=== PATIENT | male | born 1950 | race Caucasian/White ===

== ENCOUNTER → 2019-02-18 | Outpatient (CLI) | payer MEDICARE, OTHER ==
--- NOTE | 2019-02-20 01:49 | MR ---
EXAMINATION TYPE: MR MRCP DATE OF EXAM: 02/18/2019 COMPARISON: HISTORY: Disease of Pancreas Standard multiplanar, multisequence MRI departmental protocol Multiplanar, multisequence images of the abdomen were acquired. FINDINGS: Gallbladder has normal size and contour. There is no sign of gallbladder wall thickening. T here is 2 cm cyst in the left lobe of the liver. Stomach appears intact. The bile ducts are not dilat ed. Spleen shows no focal defect. There is no evidence of a pancreatic mass. There is ectasia of the distal pancreatic duct. Distal pancreatic duct measures up to 7 mm. I see no discrete pancreatic mass . There is no hydronephrosis. Kidneys have normal size and contour. There is no sign of ascites. Ther e is no pleural effusion. There is no evidence of retroperitoneal adenopathy. There is no adrenal mas s. Distal common bile duct appears normal. I see no filling defects. IMPRESSION: Biliary tree appears normal. There is mild dilation of the mid and distal pancreatic duct with a bead ed appearance that could relate to old inflammatory disease. No discrete pancreatic mass. Small cyst in the left lobe of the liver.
== END | disposition home or self-care (01) ==
LOC: RADMRIMAIN 13:47
PROVIDERS: ATTEND Physician Assistant
DX: K85.90 Acute pancreatitis without necrosis or infection, unspecified (principal); K76.89 Other specified diseases of liver
CPT/HCPCS: 74181

== ENCOUNTER 2019-03-21 19:20 | Inpatient (IN) | payer MEDICARE, OTHER ==
[2019-03-21] MEDS ORDERED: HYDROmorphone 1 MG/ML 1 ML SYRINGE IVP STA (21:19)
[2019-03-21] MEDS ORDERED: ONDANSETRON 4 MG/2 ML VIAL IVP PRN (21:25)
[2019-03-21] MEDS ORDERED: NALOXONE 0.4 MG/ML 1 ML VIAL IV PRN (21:25)
--- NOTE | 2019-03-21 21:25 | ED ---
Abdominal Pain HPI - General Source: patient, RN/MD, EMS Mode of arrival: ambulatory Limitations: no limitations <Kristina Wood - Last Filed: 03/21/19 21:16> <Minh Sommer - Last Filed: 03/21/19 21:27> - General Chief Complaint: Abdominal Pain Stated Complaint: Acute Pancreatitis Time Seen by Provider: 03/21/19 19:56 - History of Present Illness Initial Comments: 68-year-old male patient is presenting to the emergency department as a transfer from [facility] for pancreatitis and leukocytosis. Patient states that he has been having abdominal pain intermittently for the last 3 months. Patient states that he has been evaluated multiple times with no results. States that the pain seemed to worsen today. States he is unable to eat or drink. States that the pain is in his upper abdomen radiating through to his back. He states he hasn't had a bowel movement in 10 days. Denies any difficulty with urination. Denies fever or chills. Denies any vomiting but states he has been nauseous. Patient denies any recent rash, shortness breath, chest pain, back pain, numbness, tingling, dizziness, weakness, hematuria, dysuria, urinary urgency, urinary frequency, headache, visual changes, or any other complaints. (Kristina Wood) - Related Data Allergies Allergy/AdvReac Type Severity Reaction Status Date / Time No Known Allergies Allergy Verified 03/21/19 19:36 Review of Systems ROS Other: All systems not noted in ROS Statement are negative. <Kristina Wood - Last Filed: 03/21/19 21:16> ROS Other: All systems not noted in ROS Statement are negative. <Minh Sommer - Last Filed: 03/21/19 21:27> ROS Statement: Those systems with pertinent positive or pertinent negative responses have been documented in the HPI. Past Medical History Past Medical History: No Reported History History of Any Multi-Drug Resistant Organisms: None Reported Past Surgical History: Hernia Repair Additional Past Surgical History / Comment(s): intestinal blockaege Past Psychological History: No Psychological Hx Reported Smoking Status: Current every day smoker Past Alcohol Use History: Daily Past Drug Use History: None Reported <Kristina Wood - Last Filed: 03/21/19 21:16> General Exam Limitations: no limitations General appearance: alert, in no apparent distress, other (Physical well- developed, well-nourished elderly male patient in no acute distress. Vital signs upon presentation are temperature 99.2F, pulse 93, respirations 16, blood pressure 112/90, pulse ox 96% on room air.) Eye exam: Present: normal appearance, PERRL, EOMI. Absent: scleral icterus, con junctival injection, periorbital swelling ENT exam: Present: normal exam, normal oropharynx, mucous membranes moist Respiratory exam: Present: normal lung sounds bilaterally. Absent: respiratory distress, wheezes, rales, rhonchi, stridor Cardiovascular Exam: Present: regular rate, normal rhythm, normal heart sounds. Absent: systolic murmur, diastolic murmur, rubs, gallop, clicks GI/Abdominal exam: Present: soft, tenderness (Midepigastric tenderness), normal bowel sounds. Absent: distended, guarding, rebound, rigid Neurological exam: Present: alert, oriented X3, CN II-XII intact Psychiatric exam: Present: normal affect, normal mood Skin exam: Present: warm, dry, intact, normal color. Absent: rash <Kristina Wood - Last Filed: 03/21/19 21:16> Course Vital Signs 03/21/19 19:36 Temperature 99.2 F Pulse Rate 93 Respiratory 16 Rate Blood Pressure 112/90 O2 Sat by Pulse 96 Oximetry Medical Decision Making - Radiology Data Radiology results: report reviewed <Kristina Wood - Last Filed: 03/21/19 21:16> <Minh Sommer - Last Filed: 03/21/19 21:27> - Medical Decision Making 48-year-old male patient presents to the emergency department today for evaluation of acute pancreatitis and leukocytosis. He is a transfer from [facility]. Physical examination does reveal midepigastric tenderness with some guarding. I did review her reports from previous hospital, labs show white blood cell count of 20.2, sodium 132, potassium 3.4, blood glucose is 151, bilirubin 2.2. Lipase 4641. CT abdomen and pelvis was reviewed and did show evidence for inflammatory changes around the stomach and duodenum, there is also concern for possible bowel lymphoma. There is some fluid around the duodenal sweep. Patient did receive a dose of Zosyn from the previous hospital. Case was discussed with Dr. Duvall from some physicians who agrees to admission. (Kristina Wood) I saw this patient in conjunction with the physician senior assistant manager. I performed independent history and physical exam. Agree with case management. (Minh Sommer) - Radiology Data CT abdomen and pelvis was obtained with IV contrast. Report was reviewed in its entirety. Impression by Dr. Gooden and shows thickening of the mucosa of the stomach and duodenal sweep. Differential diagnoses include inflammatory changes, gastritis, duodenitis, bowel lymphoma would have to be considered in the differential diagnosis. Punctate calcific density at the pancreatitis 1 axillary #28 raises the possibility of secondary chronic pancreatitis. There is fluid surrounding the duodenal sweep. No free intraperitoneal air. No definite bowel obstruction. Hypodense lesion within the left lobe of the liver consistent most likely with a hepatic cyst as described above. (Kristina Wood) Disposition Decision to Admit Reason: Admit from EC Decision Date: 03/21/19 Decision Time: 21:25 <Kristina Wood - Last Filed: 03/21/19 21:16> <Minh Sommer - Last Filed: 03/21/19 21:27> Clinical Impression: Acute pancreatitis, Leukocytosis Disposition: ADMITTED IP TO THIS [facility] Condition: Serious Referrals: None,Stated [Primary Care Provider] - 1-2 days
--- NOTE | 2019-03-21 23:56 | P.HPIM ---
History of Present Illness H&P Date: 03/21/19 Chief Complaint: Abdominal pain The patient is a 68-year-old male with no significant past medical history who presents to the ER after being transferred here from an outside hospital from [facility] in [facility]. Apparently the patient presented there earlier today with chief complaint of generalized abdominal pain. The patient reports ongoing diffuse complaints of bloating with intermittent episodes of sharp abdominal pain rated as severe without any radiation, the patient reports associated nausea and vomiting with decreased appetite. The patient reports severe constipation and reports that he has not had a bowel movement in the last 9-10 days. The patient reports that his hand workup at [facility] including ultrasound of abdomen and abdominal CT previously and was scheduled to have a consultation appointment with GI on this but he presented there today with significant discomfort. The patient also reports some pyrosis and bloating symptoms. The patient reports he is tempted some enemas per is relieved his constipation without any success. Workup from [place] showed a leukocytosis of 20.1 , serum sodium 132 , potassium 3.4 , alkaline phosphatase 142 total bilirubin 2.2 , lipase 4641. Review of records indicates the patient had a CT abdomen and pelvis done at [facility] that showed mucosal thickening of the stomach and duodenum and a punctate calcific density of the pancreatic head possible sequela of chronic pancreatitis, there is no small bowel obstruction or intraperitoneal air, noted hypodense lesion in the left lobe of the liver consistent with a hepatic cyst. EKG showed sinus mechanism without any ischemia. The patient was given Zosyn IV fluids and transferred here for GI consultation Review of Systems pertinent positives per HPI all other review of systems are otherwise negative Past Medical History Past Medical History: No Reported History History of Any Multi-Drug Resistant Organisms: None Reported Past Surgical History: Hernia Repair Additional Past Surgical History / Comment(s): intestinal blockaege Past Psychological History: No Psychological Hx Reported Smoking Status: Current every day smoker Past Alcohol Use History: Daily Past Drug Use History: None Reported Medications and Allergies Home Medications Medication Instructions Recorded Confirmed Type No Known Home Medications 03/21/19 03/21/19 History Allergies Allergy/AdvReac Type Severity Reaction Status Date / Time No Known Allergies Allergy Verified 03/21/19 21:43 Physical Exam Vitals: Vital Signs Temp Pulse Resp BP Pulse Ox 03/21/19 21:30 84 18 136/82 94 L 03/21/19 21:00 88 16 118/83 94 L 03/21/19 20:30 85 18 145/90 95 03/21/19 20:00 82 16 112/90 94 L 03/21/19 19:36 99.2 F 93 16 112/90 96 03/21/19 19:35 87 18 112/90 97 Intake and Output 03/21/19 03/21/19 03/22/19 14:59 22:59 06:59 Other: Weight 69.853 kg Constitutional: No acute distress, conversant, pleasant Eyes: Anicteric sclerae, moist conjunctiva, no lid-lag, PERRLA ENMT: NC/AT,Oropharynx clear, no erythema, exudates Neck:Supple, FROM, no masses, or JVD, No carotid bruits; No thyromegaly Lungs: Clear to auscultation, Clear to percussion, Normal respiratory effort, no accessory muscle use Cardiovascular: Heart regular in rate and rhythm, No murmurs, gallops, or rubs no peripheral edema Abdominal: Diffusely tender with voluntary guarding, negative Black's, hypoactive bowel sounds No hepatomegaly, No splenomegaly, No palpable mass No abdominal wall hernia noted Skin: Normal temperature, tone, texture, turgor, No induration No subcutaneous nodules, No rash, lesions, No ulcers Extremities:No digital cyanosis No clubbing, Pedal pulses intact and symmetrical Radial pulses intact and symmetrical Normal gait and station, No calf tenderness Psychiatric: Alert and oriented to person, place and time, Appropriate affect Intact judgement Neuro: Muscles Strength 5/5 in all 4 extremities, Sensation to light touch grossly present throughout, Cranial nerves II-XII grossly intact. No focal sensory deficits Assessment and Plan Assessment: Acute pancreatitis Leukocytosis GERD Hyponatremia Hypokalemia hyperbilirubinemia Constipation Smoker Plan: Patient is admitted anticipated greater than 2 midnight stay with acute pancreatitis idiopathic after presenting with abdominal pain and found to have elevated lipase in the 4600 range, patient has continued on standard protocol being made nothing by mouth, continue IV fluids with normal saline and IV anti- emetics with Zofran and continue the patient on analgesic therapy with Dilaudid, will check blood cultures and urinalysis as a patient has a profound leukocytosis, we'll hold off on any antibiotics at this time unless the patient becomes febrile. We'll replace his potassium with IV potassium. Review of records indicates the patient had MRCP 02/18/19 which showed a normal-appearing biliary tree with mild dilatation of the mid and distal pancreatic duct with a beaded appearance that could relate to old inflammatory disease, no discrete pancreatic mass. The plan will be to consult GI for further recommendations and continue to follow his clinical course CODE STATUS: Full code Anticipated discharge: 2-[address]: Home Discussed plan of care with: Patient Prophylaxis: PPI therapy SCDs and heparin
[2019-03-22] MEDS: HYDROmorphone 1 MG/ML 1 ML SYRINGE IVP PRN ×7 (00:59→23:14)
[2019-03-22] MEDS: SODIUM CHLORIDE 0.9% 1,000 ML IV SCH ×2 (01:00→09:09)
[2019-03-22] MEDS: POTASSIUM CHLORIDE 10 MEQ in WATER FOR INJECTION 1 100ML.BAG IVPB SCH ×4 (01:06→09:08)
[2019-03-22 01:08] LABS: Appearance,Urine Clear (Clear); Bacteria,Urine Rare /hpf; Bilirubin,Urine Negative (Negative); Blood,Urine Negative (Negative); Color,Urine Yellow; Glucose,Urine (UA) Negative (Negative); Ketones,Urine 1+ (Negative); Leukocyte Esterase,Urine Negative (Negative); Mucus,Urine Rare /hpf; Nitrite,Urine Negative (Negative); Protein,Urine 1+ (Negative); RBC,Urine 2 /hpf (0-5); Squamous Epithelial Cell,Urine <1 /hpf (0-4); WBC,Urine 6 /hpf (0-5)
[2019-03-22 01:20] LABS: Specific Gravity,Urine >1.050 (1.001-1.035)
--- NOTE | 2019-03-22 03:41 | XR ---
EXAMINATION TYPE: XR chest 2V DATE OF EXAM: 03/22/2019 COMPARISON: NONE HISTORY: Leukocytosis TECHNIQUE: FINDINGS: Heart is normal. Lungs are clear of infiltrate. There is no heart failure. Thoracic aorta i s atheromatous. There are no hilar masses. Bony thorax is intact. IMPRESSION: No active cardiopulmonary disease.
[2019-03-22] MEDS: HEPARIN SODIUM,PORCINE 5,000 UNIT/ML 1 ML VIAL SQ SCH ×2 (08:24→21:14)
[2019-03-22] MEDS: PANTOPRAZOLE 40 MG/10 ML VIAL IVP SCH ×2 (08:24→21:14)
[2019-03-22 09:13] LABS: Basophils # (A) 0.1 k/uL (0-0.2); Basophils % (A) 1 %; Eosinophils # (A) 0.2 k/uL (0-0.7); Eosinophils % (A) 1 %; HCT 40.7 % (39.0-53.0); HGB 13.9 gm/dL (13.0-17.5); Lymphocytes # (A) 0.9 k/uL (1.0-4.8); Lymphocytes % (A) 6 %; MCH 31.9 pg (25.0-35.0); MCHC 34.1 g/dL (31.0-37.0); MCV 93.5 fL (80.0-100.0); Mean Platelet Volume 8.5; Monocytes % (A) 6 %; Neutrophils # (A) 14.7 k/uL (1.3-7.7); Neutrophils % (A) 86 %; Platelet Count 284 k/uL (150-450); RBC 4.36 m/uL (4.30-5.90); RDW 12.4 % (11.5-15.5)
[2019-03-22 09:55] LABS: ALT 20 U/L (4-49); AST 22 U/L (17-59); African American GFR (CKD) >90 (>60 ml/min/1.73 sqM); Albumin 3.2 g/dL (3.5-5.0); Alkaline Phosphatase 112 U/L (38-126); Anion Gap 9 mmol/L; Blood Urea Nitrogen 15 mg/dL (9-20); Calcium 8.5 mg/dL (8.4-10.2); Carbon Dioxide 27 mmol/L (22-30); Chloride 97 mmol/L (98-107); Cholesterol 91 mg/dL (<200); Glucose 87 mg/dL (74-99); HDL Cholesterol 26 mg/dL (40-60); LDL Cholesterol,Calculated 53 mg/dL (0-99); Non-African American GFR(CKD) >90 (>60 ml/min/1.73 sqM); Potassium 4.4 mmol/L (3.5-5.1); Sodium 133 mmol/L (137-145); Total Bilirubin 2.2 mg/dL (0.2-1.3); Total Protein 5.8 g/dL (6.3-8.2); Triglycerides 61 mg/dL (<150)
[2019-03-22 10:03] LABS: Glucose,Whole Blood 93 mg/dL (75-99)
[2019-03-22] MEDS ORDERED: NICOTINE POLACRILEX 2 MG GUM BUCCAL PRN (12:39)
--- NOTE | 2019-03-22 12:40 | P.PN ---
Subjective Progress Note Date: 03/22/19 Principal diagnosis: abdominal pain Patient is a 68-year-old male with no significant past medical history, no PCP, and ongoing tobacco abuse who presented to the emergency department from [facility] secondary to abdominal pain and abnormal CT. He had presented there with ongoing abdominal pain over the last 10-12 days. Initial laboratory analysis showed an elevated lipase of 4000. CT abdomen and pelvis showed mucosal thickening of the stomach and watermelon with punctate calcification of the pancreatic head but no signs of acute pancreatitis. There is a hypodense lesion noted in the left lobe of the liver consistent with hepatic cysts. He was also noted to have an elevated white blood cell count at 20. He was transferred here for definitive management. He had been seeing a physician in [place] as an outpatient and he had undergone an outpatient CT, abdominal ultrasound, and MRCP which showed mild dilation of the mid and distal pancreatic duct with repeated. Since that could relate to old inflammatory disease and a small cyst in the left lobe of the liver. He presented to the ER yesterday as his pain was getting worse and he could no longer tolerate it. He reports that for the last 10-12 days he's had severe abdominal pain with eating and had not had a bowel movement. He has attempted several enemas and suppositories without success. He has not been eating for the last week secondary to the pain and no bowel movement. He reports that he had a colonoscopy approximately 5-6 years ago that was good and he was told to follow- up in 10 years. He had an appointment with GI on 03/22/19 in [place] but his peak pain became so severe that he presented to the emergency department. Patient seen and examined at bedside. He continues to have some abdominal pain which he states is unchanged from yesterday, he reports feeling hungry but not wanting to eat secondary to his belly pain. He still has not had a bowel movement. He denies any weight loss until he stopped eating on purpose approximately 10 days ago. He denies any night sweats. He is father did have some type of cancer but is unsure what kind but no other known history of colon or stomach cancer in the family. Objective - Vital Signs Vital signs: Vital Signs Temp 97.6 F 03/22/19 07:00 Pulse 89 03/22/19 07:00 Resp 20 03/22/19 07:00 BP 127/76 03/22/19 07:00 Pulse Ox 100 03/22/19 07:00 Intake & Output 03/21/19 03/22/19 03/22/19 18:59 06:59 18:59 Weight 69.853 kg 69.853 kg - Exam General: ill appearing, no distress, appears at stated age, temporal wasting gaunt Derm: warm, dry Head: atraumatic, normocephalic, symmetric Eyes: EOMI, no lid lag, anicteric sclera Mouth: no lip lesion, mucus membranes dry Cardiovascular: S1S2 reg, no murmur, positive posterior tibial pulse bilateral, Lungs: CTA bilateral, no rhonchi, no rales , no accessory muscle use Abdominal: soft, +tender to palpation RUQ and LLQ, no guarding, no appreciable organomegaly Ext: no gross muscle atrophy, no edema, no contractures Neuro: CN II-XI grossly intact, no focal neuro deficits Psych: Alert, oriented, appropriate affect - Labs CBC & Chem 7: 03/22/19 08:35 03/22/19 08:35 Labs: Abnormal Lab Results - Last 24 Hours (Table) 03/22/19 03/22/19 03/22/19 Range/Units 00:35 08:35 08:35 WBC 17.0 H (3.8-10.6) k/uL Neutrophils # 14.7 H (1.3-7.7) k/uL Lymphocytes # 0.9 L (1.0-4.8) k/uL Sodium 133 L (137-145) mmol/L Chloride 97 L (98-107) mmol/L Total Bilirubin 2.2 H (0.2-1.3) mg/dL Total Protein 5.8 L (6.3-8.2) g/dL Albumin 3.2 L (3.5-5.0) g/dL HDL Cholesterol 26 L (40-60) mg/dL Ur Specific [place] >1.050 H (1.001-1.035) Urine Protein 1+ H (Negative) Urine Ketones 1+ H (Negative) Urine WBC 6 H (0-5) /hpf Urine Bacteria Rare H (None) /hpf Urine Mucus Rare H (None) /hpf Assessment and Plan Assessment: Pancreatitis possible acute on chronic and dilated pancreatic duct -Await GI consultation -Nothing by mouth -IV fluids, pain medications, antiemetics Severe constipation with no bowel movement in greater than 10 days and thickening of the duodenum and stomach on computed tomography scan -Consult GI -Nothing by mouth -No signs of obstruction on computed tomography scan is okay with GI will order MiraLAX Leukocytosis likely secondary to pain and pancreatitis -Follow CBC -UA and chest x-ray negative and no indication for antibiotics currently Hyponatremia -Likely secondary to poor solute intake -Continue IV fluids -Repeat sodium in a.m. Tobacco abuse -Cessation -Nicotine replacement DVT prophylaxis: Heparin Discussed with: patient, nursing Anticipated discharge: 2-[address]: home A total of 35 minutes was spent on the care of this complex patient more than 50% of the time was spent in counseling and care coordination. -
[2019-03-22] MEDS: LACTATED RINGERS 1,000 ML IV SCH ×2 (16:47→21:09)
[2019-03-22 16:54] LABS: Glucose,Whole Blood 83 mg/dL (75-99)
[2019-03-22 20:30] LABS: Glucose,Whole Blood 77 mg/dL (75-99)
[2019-03-22] MEDS: DEXTROSE 5%-0.9% NACL 1,000 ML IV SCH (21:11)
[2019-03-23] MEDS: HYDROmorphone 1 MG/ML 1 ML SYRINGE IVP PRN ×5 (02:08→15:16)
[2019-03-23] MEDS: DEXTROSE 5%-0.9% NACL 1,000 ML IV SCH ×2 (06:17→08:56)
[2019-03-23 07:08] LABS: Glucose,Whole Blood 119 mg/dL (75-99)
--- NOTE | 2019-03-23 07:26 | CONS ---
CONSULTATION DATE OF SERVICE: 03/22/2019 REASON FOR CONSULTATION: Acute pancreatitis. HISTORY OF PRESENT ILLNESS: The patient is a 68-year-old pleasant white male with no significant past medical history was transferred from [facility] when he was admitted because of chronic abdominal pain for the last 2 weeks duration. He describes the pain mostly in the epigastric area diffusely radiating to the periumbilical and lower abdominal area associated with abdominal bloating, nausea, and decreased appetite for the last 2 weeks. He lost approximately 15 pounds since the onset of these symptoms. He denies any alcohol use. He went to the emergency room at [facility], was noted to have elevated lipase consistent with acute pancreatitis. Initial labs at [facility] showed a lipase of 4641, alkaline phosphatase of 142, bilirubin was 1.2. He did have a CT of the abdomen and pelvis done at [facility] that showed mucosal thickening of the stomach and duodenum and punctate calcific density in the pancreatic head suspicious for chronic pancreatitis. The patient denies any alcohol use. He never had these symptoms in the past. No prior history of acute pancreatitis. No family history of pancreatitis. PAST MEDICAL HISTORY: Unremarkable. PAST SURGICAL HISTORY: Hernia repair. MEDICATIONS AT HOME: None. ALLERGIES: No known drug allergies. SOCIAL HISTORY: Chronic smoker, but no alcohol use. FAMILY HISTORY: Unremarkable. REVIEW OF SYSTEMS: CARDIOPULMONARY: No chest pain or shortness of breath. GENITOURINARY: No dysuria or hematuria. MUSCULOSKELETAL: Unremarkable. SKIN: Unremarkable. ENDOCRINE: Unremarkable. PSYCHIATRIC: Unremarkable. NEUROLOGY: Unremarkable. ENT/VISION: Unremarkable. CONSTITUTIONAL: No recent weight loss. No fever, chills, night sweats. PHYSICAL EXAMINATION: On physical examination he appears comfortable. No apparent distress. VITAL SIGNS: Are stable. Blood pressure 142/63, pulse rate 109, temperature 98.9. HEENT EXAMINATION: Unremarkable. Conjunctivae pink. Sclerae anicteric. Oral cavity no lesions. NECK: No JVD or lymph node enlargement. CHEST: Was clear to auscultation. HEART: Regular rate and rhythm. ABDOMEN: Soft. Bowel sounds are positive. There was moderate to severe tenderness in the epigastric and in the periumbilical area. EXTREMITIES: No pedal edema. SKIN: No rashes. NEURO: He is alert and oriented x3. No focal deficits. LABS: Labs from today: WBC 17, hemoglobin 13.9, platelets normal. BUN and creatinine normal. Basic metabolic panel is within normal limits. Lipase is 5662. ALT and AST are 22 and 28 respectively. T-bilirubin is 2.2, alkaline phosphatase is 112. The CT of the abdomen as mentioned above at [facility] showed punctate calcification at the head of the pancreas suspicious for chronic pancreatitis. IMPRESSION: This is a patient who presents to the hospital with severe epigastric pains radiating to the periumbilical area for the last 2 weeks duration noted to have elevated lipase consistent with acute pancreatitis. The CAT scan of the abdomen did show some punctate calcifications in the head of the pancreas suspicious for chronic pancreatitis. The patient states he denies any alcohol abuse. Etiology of pancreatitis remains unclear. RECOMMENDATIONS: 1. Keep him n.p.o. except ice chips. 2. Aggressive IV hydration. 3. Pain medications as needed. 4. IV proton pump inhibitor. 5. Repeat labs in the morning. 6. I had a lengthy discussion with the patient regarding workup of chronic pancreatitis. At this time we will obtain fasting serum triglyceride levels as well as IgG 4 levels and he may need to be investigated further on outpatient basis with endoscopic ultrasound of pancreas on outpatient basis. At this time, we will follow him closely. Thank you for this consultation. MMODL / IJN: [id number] /
[2019-03-23] MEDS: HEPARIN SODIUM,PORCINE 5,000 UNIT/ML 1 ML VIAL SQ SCH ×2 (08:56→21:12)
[2019-03-23] MEDS: PANTOPRAZOLE 40 MG/10 ML VIAL IVP SCH ×2 (08:56→21:12)
[2019-03-23 09:34] LABS: ALT 15 U/L (4-49); AST 18 U/L (17-59); African American GFR (CKD) >90 (>60 ml/min/1.73 sqM); Albumin 2.7 g/dL (3.5-5.0); Alkaline Phosphatase 86 U/L (38-126); Anion Gap 6 mmol/L; Blood Urea Nitrogen 10 mg/dL (9-20); Carbon Dioxide 26 mmol/L (22-30); Chloride 102 mmol/L (98-107); Glucose 106 mg/dL (74-99); Non-African American GFR(CKD) >90 (>60 ml/min/1.73 sqM); Potassium 3.5 mmol/L (3.5-5.1); Sodium 134 mmol/L (137-145); Total Bilirubin 1.3 mg/dL (0.2-1.3); Total Protein 5.1 g/dL (6.3-8.2)
[2019-03-23 11:42] LABS: Glucose,Whole Blood 102 mg/dL (75-99)
[2019-03-23] MEDS: LACTATED RINGERS 1,000 ML IV SCH ×2 (12:05→17:31)
[2019-03-23 16:01] VITALS: BMI 22.4
--- NOTE | 2019-03-23 16:50 | P.PN ---
Subjective Progress Note Date: 03/23/19 Principal diagnosis: abdominal pain Patient is a 68-year-old male with no significant past medical history, no PCP, and ongoing tobacco abuse who presented to the emergency department from [facility] secondary to abdominal pain and abnormal CT. He had presented there with ongoing abdominal pain over the last 10-12 days. Initial laboratory analysis showed an elevated lipase of 4000. CT abdomen and pelvis showed mucosal thickening of the stomach and watermelon with punctate calcification of the pancreatic head but no signs of acute pancreatitis. There is a hypodense lesion noted in the left lobe of the liver consistent with hepatic cysts. He was also noted to have an elevated white blood cell count at 20. He was transferred here for definitive management. He had been seeing a physician in [place] as an outpatient and he had undergone an outpatient CT, abdominal ultrasound, and MRCP which showed mild dilation of the mid and distal pancreatic duct with repeated. Since that could relate to old inflammatory disease and a small cyst in the left lobe of the liver. He presented to the ER yesterday as his pain was getting worse and he could no longer tolerate it. He reports that for the last 10-12 days he's had severe abdominal pain with eating and had not had a bowel movement. He has attempted several enemas and suppositories without success. He has not been eating for the last week secondary to the pain and no bowel movement. He reports that he had a colonoscopy approximately 5-6 years ago that was good and he was told to follow- up in 10 years. He had an appointment with GI on 03/22/19 in [place] but his peak pain became so severe that he presented to the emergency department. He was seen the GI who felt that he likely has sequela of chronic pancreatitis and has been acute flare they recommended nothing by mouth status, IV fluids, and pain medications. Patient seen and examined at bedside. He reports that his abdominal pain is slightly improved from yesterday, no nausea, feeling hungry, passing gas of no bowel movement. He denies any chest pain or shortness of breath. He does report that he had elevated triglyceride level several years ago and went on all fish diet and started taking TriCor and these improved and he has since been taken off that medication. Objective - Vital Signs Vital signs: Vital Signs Temp 98.2 F 03/23/19 13:41 Pulse 90 03/23/19 13:41 Resp 16 03/23/19 13:41 BP 113/61 03/23/19 13:41 Pulse Ox 96 03/23/19 13:41 Intake & Output 03/22/19 03/23/19 03/23/19 18:59 06:59 18:59 Intake Total 1600 Balance 1600 Weight 69.853 kg 71.078 kg Intake: Intake, IV Titration 1600 Amount Potassium Chloride 10 meq 400 In Water For Injection 1 100ml.bag @ 100 mls/hr IVPB Q1HR DIMITRY Rx#: [id number] Sodium Chloride 0.9% 1, 1200 000 ml @ 100 mls/hr IV . Q10H DIMITRY Rx#:[id number] Other: Voiding Method Toilet Toilet # Voids 4 2 2 - Exam General: Nontoxic, mild distress secondary to pain, appears at stated age, temporal wasting gaunt Derm: warm, dry Head: atraumatic, normocephalic, symmetric Eyes: EOMI, no lid lag, anicteric sclera Mouth: no lip lesion, mucus membranes dry Cardiovascular: S1S2 reg, no murmur, positive posterior tibial pulse bilateral, Lungs: Decreased breath sounds bilateral, no rhonchi, no rales , no accessory muscle use Abdominal: soft, +tender to palpation diffusely, no guarding, no appreciable organomegaly Ext: no gross muscle atrophy, no edema, no contractures Neuro: CN II-XI grossly intact, no focal neuro deficits Psych: Alert, oriented, appropriate affect - Labs CBC & Chem 7: 03/22/19 08:35 03/23/19 08:48 Labs: Abnormal Lab Results - Last 24 Hours (Table) 03/23/19 03/23/19 03/23/19 Range/Units 07:06 08:48 11:41 Sodium 134 L (137-145) mmol/L Glucose 106 H (74-99) mg/dL POC Glucose (mg/dL) 119 H 102 H (75-99) mg/dL Calcium 8.0 L (8.4-10.2) mg/dL Total Protein 5.1 L (6.3-8.2) g/dL Albumin 2.7 L (3.5-5.0) g/dL Lipase 3674 H (23-300) U/L Microbiology - Last 24 Hours (Table) 03/22/19 00:10 Blood Culture - Preliminary Blood No Growth after 24 hours 03/22/19 00:10 Blood Culture - Preliminary Blood No Growth after 24 hours Assessment and Plan Assessment: Pancreatitis possible acute on chronic and dilated pancreatic duct -GI recommendations appreciated -Nothing by mouth -IV fluids, pain medications, antiemetics -Await IgG4, triglyceride levels normal Severe constipation with no bowel movement in greater than 10 days and thickening of the duodenum and stomach on computed tomography scan -GI recommendations appreciated -Start MiraLAX today -Monitor for bowel movements -Currently passing gas Leukocytosis likely secondary to pain and pancreatitis -Follow CBC -UA and chest x-ray negative and no indication for antibiotics currently Hyponatremia, stable -Likely secondary to poor solute intake -Transition fluids to LR -Repeat sodium in a.m. Tobacco abuse -Cessation -Nicotine replacement Severe protein calorie malnutrition -Dietitian recommendations -Start supplementation once able to eat DVT prophylaxis: Heparin Discussed with: patient, nursing Anticipated discharge: 1-[address]: home A total of 35 minutes was spent on the care of this complex patient more than 50% of the time was spent in counseling and care coordination. -
[2019-03-23 16:56] LABS: Glucose,Whole Blood 98 mg/dL (75-99)
[2019-03-23] MEDS: POLYETHYLENE GLYCOL 3350 17 GM POWD.PACK PO SCH (17:30)
[2019-03-23 20:51] LABS: Glucose,Whole Blood 109 mg/dL (75-99)
--- NOTE | 2019-03-23 23:11 | PN ---
PROGRESS NOTE DATE OF SERVICE: March 23, 2019 Patient is a 68-year-old pleasant white male admitted to hospital with acute pancreatitis. He presents to the hospital with 2 weeks of epigastric pain, noted to have elevated lipase at 5000. He is doing better today. He still has some abdominal pain but is requiring the pain medications more infrequently. He denies any nausea or vomiting. States that he is extremely hungry. Remains n.p.o. PHYSICAL EXAMINATION: He appears comfortable. No apparent distress. VITAL SIGNS: Stable. Blood pressure 113/61, pulse rate 90, temperature 98.2. HEENT examination unremarkable. Conjunctivae pink. Sclerae anicteric. Oral cavity no lesions. NECK: No JVD or lymph node enlargement. CHEST: Clear to auscultation. HEART: Regular rate and rhythm. ABDOMEN: Mild tenderness in the epigastric area. The rest of the abdomen is benign. EXTREMITIES: No pedal edema. SKIN: No rashes. NEUROLOGIC: Alert and oriented x3. No focal deficits. LABS: From today, lipase is 3674, amylase is not done. ALT/AST and T-bilirubin and alkaline phosphatase are within normal limits. IMPRESSION: Acute pancreatitis, gradually improving. Lipase has improved. Serum transaminases are within normal limits. CT of the abdomen that was done at [facility] showed dilated pancreatic duct, but no pancreatic lesions identified. The etiology of pancreatitis at this time remains unclear. The possibility of IPMN needs to be excluded. RECOMMENDATIONS: 1. We will start him on a clear liquid diet. 2. Repeat labs in the morning. 3. Discussed with the patient regarding management of pancreatitis. We will follow with you closely. Thank you for this consultation. MMODL / IJN: [id number] /
[2019-03-24] MEDS: LACTATED RINGERS 1,000 ML IV SCH ×4 (01:22→11:53)
[2019-03-24] MEDS: ACETAMINOPHEN TAB 325 MG TAB PO PRN (03:31)
[2019-03-24] MEDS: HYDROmorphone 1 MG/ML 1 ML SYRINGE IVP PRN (03:32)
[2019-03-24 07:16] LABS: Glucose,Whole Blood 81 mg/dL (75-99)
[2019-03-24] MEDS: PANTOPRAZOLE 40 MG/10 ML VIAL IVP SCH ×2 (08:19→20:06)
[2019-03-24] MEDS: POLYETHYLENE GLYCOL 3350 17 GM POWD.PACK PO SCH (08:19)
[2019-03-24] MEDS: HEPARIN SODIUM,PORCINE 5,000 UNIT/ML 1 ML VIAL SQ SCH ×2 (08:19→20:06)
[2019-03-24 09:20] LABS: HCT 35.7 % (39.0-53.0); HGB 12.4 gm/dL (13.0-17.5); MCH 32.5 pg (25.0-35.0); MCHC 34.7 g/dL (31.0-37.0); MCV 93.9 fL (80.0-100.0); Mean Platelet Volume 8.3; Platelet Count 219 k/uL (150-450); RDW 12.3 % (11.5-15.5); WBC 9.9 k/uL (3.8-10.6)
[2019-03-24 09:49] LABS: ALT 15 U/L (4-49); AST 22 U/L (17-59); African American GFR (CKD) >90 (>60 ml/min/1.73 sqM); Albumin 2.6 g/dL (3.5-5.0); Alkaline Phosphatase 132 U/L (38-126); Anion Gap 7 mmol/L; Blood Urea Nitrogen 7 mg/dL (9-20); Calcium 7.9 mg/dL (8.4-10.2); Carbon Dioxide 29 mmol/L (22-30); Chloride 100 mmol/L (98-107); Glucose 116 mg/dL (74-99); Non-African American GFR(CKD) >90 (>60 ml/min/1.73 sqM); Potassium 3.4 mmol/L (3.5-5.1); Sodium 136 mmol/L (137-145); Total Bilirubin 1.1 mg/dL (0.2-1.3)
[2019-03-24] MEDS ORDERED: HYDROcodone/APAP 5-325MG 1 EACH TAB PO PRN (11:46)
[2019-03-24] MEDS ORDERED: POTASSIUM BICARBONATE/CIT AC 20 MEQ TABLET.EFF PO ONE (12:00)
[2019-03-24 12:19] LABS: Glucose,Whole Blood 101 mg/dL (75-99)
--- NOTE | 2019-03-24 12:37 | P.PN ---
Subjective Progress Note Date: 03/24/19 Principal diagnosis: abdominal pain Patient is a 68-year-old male with no significant past medical history, no PCP, and ongoing tobacco abuse who presented to the emergency department from [facility] secondary to abdominal pain and abnormal CT. He had presented there with ongoing abdominal pain over the last 10-12 days. Initial laboratory analysis showed an elevated lipase of 4000. CT abdomen and pelvis showed mucosal thickening of the stomach and watermelon with punctate calcification of the pancreatic head but no signs of acute pancreatitis. There is a hypodense lesion noted in the left lobe of the liver consistent with hepatic cysts. He was also noted to have an elevated white blood cell count at 20. He was transferred here for definitive management. He had been seeing a physician in [place] as an outpatient and he had undergone an outpatient CT, abdominal ultrasound, and MRCP which showed mild dilation of the mid and distal pancreatic duct with repeated. Since that could relate to old inflammatory disease and a small cyst in the left lobe of the liver. He presented to the ER yesterday as his pain was getting worse and he could no longer tolerate it. He reports that for the last 10-12 days he's had severe abdominal pain with eating and had not had a bowel movement. He has attempted several enemas and suppositories without success. He has not been eating for the last week secondary to the pain and no bowel movement. He reports that he had a colonoscopy approximately 5-6 years ago that was good and he was told to follow- up in 10 years. He had an appointment with GI on 03/22/19 in [place] but his peak pain became so severe that he presented to the emergency department. He was seen the GI who felt that he likely has sequela of chronic pancreatitis and has been acute flare they recommended nothing by mouth status, IV fluids, and pain medications. He was started on a bowel regiment with miralax and 2 bowel movements. He was started on a clear liquid diet and tolerated this well. Patient seen and examined at bedside. His abdominal pain is improving. Tolerated a full liquid diet without increase in pain. Feeling less hungry today than yesterday. No nausea or vomiting. Overall feeling better. Objective - Vital Signs Vital signs: Vital Signs Temp 98.2 F 03/24/19 05:24 Pulse 87 03/24/19 05:24 Resp 16 03/24/19 05:24 BP 106/67 03/24/19 05:24 Pulse Ox 97 03/24/19 05:24 Intake & Output 03/23/19 03/24/19 03/24/19 18:59 06:59 18:59 Intake Total 350 Balance 350 Weight 71.078 kg 71.078 kg Intake: Oral 350 Other: Voiding Method Toilet Toilet Toilet # Voids 2 2 # Bowel Movements 1 - Exam General: Nontoxic, no distress, appears at stated age, temporal wasting gaunt Derm: warm, dry Head: atraumatic, normocephalic, symmetric Eyes: EOMI, no lid lag, anicteric sclera Mouth: no lip lesion, mucus membranes dry Cardiovascular: S1S2 reg, no murmur, positive posterior tibial pulse bilateral, Lungs: Decreased breath sounds bilateral, no rhonchi, no rales , no accessory muscle use Abdominal: soft, +tender to palpation RUQ, no guarding, no appreciable organomegaly Ext: no gross muscle atrophy, no edema, no contractures Neuro: CN II-XI grossly intact, no focal neuro deficits Psych: Alert, oriented, appropriate affect - Labs CBC & Chem 7: 03/24/19 08:31 03/24/19 08:31 Labs: Abnormal Lab Results - Last 24 Hours (Table) 03/23/19 03/24/19 03/24/19 Range/Units 20:50 08:31 08:31 RBC 3.80 L (4.30-5.90) m/uL Hgb 12.4 L (13.0-17.5) gm/dL Hct 35.7 L (39.0-53.0) % Sodium 136 L (137-145) mmol/L Potassium 3.4 L (3.5-5.1) mmol/L BUN 7 L (9-20) mg/dL Creatinine 0.62 L (0.66-1.25) mg/dL Glucose 116 H (74-99) mg/dL POC Glucose (mg/dL) 109 H (75-99) mg/dL Calcium 7.9 L (8.4-10.2) mg/dL Alkaline Phosphatase 132 H (38-126) U/L Total Protein 5.0 L (6.3-8.2) g/dL Albumin 2.6 L (3.5-5.0) g/dL Lipase 2169 H (23-300) U/L Microbiology - Last 24 Hours (Table) 03/22/19 00:10 Blood Culture - Preliminary Blood No Growth after 48 hours 03/22/19 00:10 Blood Culture - Preliminary Blood No Growth after 48 hours Assessment and Plan Assessment: Pancreatitis possible acute on chronic and dilated pancreatic duct -GI recommendations appreciated -advanced to full liquid diet today -IV fluids, pain medications, antiemetics, added oral pain medications -Await IgG4, triglyceride levels normal Severe constipation with no bowel movement in greater than 10 days and thickening of the duodenum and stomach on computed tomography scan - BM X 2 03/23/19 -GI recommendations appreciated -Continue MiraLAX -Monitor for bowel movements -Currently passing gas Hyponatremia, stable -Likely secondary to poor solute intake -Repeat sodium in a.m. Tobacco abuse -Cessation -Nicotine replacement Severe protein calorie malnutrition -Dietitian recommendations -Start supplementation once able to eat Leukocytosis likely secondary to pain and pancreatitis, resolved DVT prophylaxis: Heparin Discussed with: patient, nursing Anticipated discharge: 1-[address]: home A total of 35 minutes was spent on the care of this complex patient more than 50% of the time was spent in counseling and care coordination. -
[2019-03-24 13:45] LABS: IgG Subclass 3 17.8 mg/dL (11.0-85.0)
[2019-03-24 13:54] LABS: IgG Subclass 4 40.6 mg/dL (3.0-175.0)
--- NOTE | 2019-03-24 20:08 | PN ---
PROGRESS NOTE The patient is a 68 year old white male admitted to the hospital with acute pancreatitis. He has been having epigastric pain for 2 weeks. He is feeling better. Lipase is improving. He is on a full liquid diet, tolerating well. Today lipase is 2169. PHYSICAL EXAMINATION: Appears comfortable, no apparent distress. Vital signs are stable. Blood pressure 135/77, pulse is 79, temperature 98. HEENT examination unremarkable. Conjunctivae pink. Sclerae anicteric. Oral cavity no lesions. NECK: No JVD or lymph node enlargement. Chest was clear to auscultation. HEART: Regular rate and rhythm. ABDOMEN: Soft. Mild tenderness in the epigastric area. Bowel sounds are positive. No organomegaly. EXTREMITIES: No pedal edema. SKIN no rashes. NEUROLOGIC: Alert and oriented x3. No focal deficits. LABS: Lipase 2169. ALT, AST, T-bilirubin normal. WBC 9.9, hemoglobin 12.4, platelets 219. IMPRESSION: Acute pancreatitis, first episode. The patient has lost 15 pounds since the onset of symptoms 2 weeks ago. Etiology of pancreatitis remains unclear. Serum IgG 4 levels are normal. Fasting triglycerides are normal. No history of alcohol use. Ultrasound showed no gallstones. CT showed dilated pancreatic duct. Rule out IPMN. RECOMMENDATIONS: 1. Continue with full liquid diet. 2. Repeat labs in the morning. 3. We will advance as tolerated. 4. Further workup of acute pancreatitis on an outpatient basis. Thank you for this consultation. MMODL / IJN: [id number] /
[2019-03-24 23:29] VITALS: RESP 20
[2019-03-25] MEDS: LACTATED RINGERS 1,000 ML IV SCH ×2 (00:27→10:14)
[2019-03-25] MEDS: ACETAMINOPHEN TAB 325 MG TAB PO PRN (04:40)
[2019-03-25 07:46] LABS: HCT 34.5 % (39.0-53.0); HGB 12.1 gm/dL (13.0-17.5); MCH 32.8 pg (25.0-35.0); MCHC 35.2 g/dL (31.0-37.0); Platelet Count 280 k/uL (150-450); RBC 3.71 m/uL (4.30-5.90); RDW 12.3 % (11.5-15.5)
[2019-03-25] MEDS: HEPARIN SODIUM,PORCINE 5,000 UNIT/ML 1 ML VIAL SQ SCH (07:54)
[2019-03-25] MEDS: POLYETHYLENE GLYCOL 3350 17 GM POWD.PACK PO SCH (07:54)
[2019-03-25] MEDS: PANTOPRAZOLE 40 MG/10 ML VIAL IVP SCH (07:54)
[2019-03-25 07:57] LABS: ALT 18 U/L (4-49); AST 25 U/L (17-59); African American GFR (CKD) >90 (>60 ml/min/1.73 sqM); Albumin 2.4 g/dL (3.5-5.0); Alkaline Phosphatase 168 U/L (38-126); Anion Gap 7 mmol/L; Blood Urea Nitrogen 5 mg/dL (9-20); Calcium 7.7 mg/dL (8.4-10.2); Carbon Dioxide 28 mmol/L (22-30); Chloride 103 mmol/L (98-107); Glucose 92 mg/dL (74-99); Non-African American GFR(CKD) >90 (>60 ml/min/1.73 sqM); Potassium 3.3 mmol/L (3.5-5.1); Sodium 138 mmol/L (137-145); Total Bilirubin 0.8 mg/dL (0.2-1.3); Total Protein 4.7 g/dL (6.3-8.2)
--- NOTE | 2019-03-25 10:29 | P.DS ---
Providers Date of admission: 03/21/19 21:14 Expected date of discharge: 03/25/19 Attending physician: Iraj Mena MD Consults: 03/22/19 11:34 Consult Physician Routine Consulting Provider: Tammy Smith Consult Reason/Comments: pain, no bowel movement in 12 days Do you want consulting provider notified?: Yes Primary care physician: Stated None Hospital Course: Discharge Diagnosis: Pancreatitis possible acute on chronic and dilated pancreatic duct Severe constipation, resolved Hyponatremia, stable Tobacco abuse Severe protein calorie malnutrition Leukocytosis likely secondary to pain and pancreatitis, resolved Hospital Course: Patient is a 68-year-old male with no significant past medical history, no PCP, and ongoing tobacco abuse who presented to the emergency department from [facility] secondary to abdominal pain and abnormal CT. He had presented there with ongoing abdominal pain over the last 10-12 days. Initial laboratory analysis showed an elevated lipase of 4000. CT abdomen and pelvis showed mucosal thickening of the stomach and watermelon with punctate calcification of the pancreatic head but no signs of acute pancreatitis. There is a hypodense lesion noted in the left lobe of the liver consistent with hepatic cysts. He was also noted to have an elevated white blood cell count at 20. He was transferred here for definitive management. He had been seeing a physician in [place] as an outpatient and he had undergone an outpatient CT, abdominal ultrasound, and MRCP which showed mild dilation of the mid and distal pancreatic duct which could relate to old inflammatory disease and a small cyst in the left lobe of the liver. He presented to the ER yesterday as his pain was getting worse and he could no longer tolerate it. He reports that for the last 10-12 days he's had severe abdominal pain with eating and had not had a bowel movement. He has attempted several enemas and suppositories without success. He has not been eating for the last week secondary to the pain and no bowel movement. He reports that he had a colonoscopy approximately 5-6 years ago that was good and he was told to follow-up in 10 years. He had an appointment with GI on 03/22/19 in [place] but his peak pain became so severe that he presented to the emergency department. He was seen the GI who felt that he likely has sequela of chronic pancreatitis and has been acute flare they recommended nothing by mouth status, IV fluids, and pain medications. He was started on a bowel regiment with miralax and 2 bowel movements. He was started on a clear liquid diet and tolerated this well, this was increased and he tolerated this well. His pain was controlled and he was having bowel movements. He was discharged home in stable condition. He will follow-up with Dr. Smith in 2 weeks and his PCP in 3-5 days. Patient seen and examined at bedside. Pain well controlled, tolerating diet, had 2 bowel movements, eating well. Feeling much improved. Vital signs reviewed and stable. General: non toxic, no distress, appears at stated age Derm: warm, dry Head: atraumatic, normocephalic, symmetric Eyes: EOMI, no lid lag, anicteric sclera Mouth: no lip lesion, mucus membranes moist Cardiovascular: S1S2 reg, no murmur, positive posterior tibial pulse bilateral, Lungs: CTA bilateral, no rhonchi, no rales , no accessory muscle use Abdominal: soft, nontender to palpation, no guarding, no appreciable organomegaly Ext: no gross muscle atrophy, no edema, no contractures Neuro: CN II-XI grossly intact, no focal neuro deficits Psych: Alert, oriented, appropriate affect A total of 35 minutes of time were spent preparing this complex discharge summary . Patient Condition at Discharge: Stable Plan - Discharge Summary Discharge Rx Participant: No New Discharge Prescriptions: New Docusate [Colace] 100 mg PO DAILY #30 capsule Polyethylene Glycol 3350 [Miralax] 17 gm PO DAILY PRN powd.pack PRN Reason: Constipation Pantoprazole [Protonix] 40 mg PO AC-BID #60 tablet. Acetaminophen Tab [Tylenol] 650 mg PO Q6HR PRN tab PRN Reason: Fever and/ or MILD Pain Discharge Medication List Acetaminophen Tab [Tylenol] 650 mg PO Q6HR PRN tab 03/25/19 [Rx] Docusate [Colace] 100 mg PO DAILY #30 capsule 03/25/19 [Rx] Pantoprazole [Protonix] 40 mg PO AC-BID #60 tablet. 03/25/19 [Rx] Polyethylene Glycol 3350 [Miralax] 17 gm PO DAILY PRN powd.pack 03/25/19 [Rx] Follow up Appointment(s)/Referral(s): Tammy Smith MD [STAFF PHYSICIAN] - 1 Week None,Stated [Primary Care Provider] - 1-2 days Patient Instructions/Handouts: Pancreatitis (DC) Activity/Diet/Wound Care/Special Instructions: Activity: as tolerated Diet: low fat Discharge Disposition: HOME SELF-CARE
[2019-03-25 13:02] VITALS: BP 130/79; PULSE 78; TEMP 98.2
--- NOTE | 2019-03-25 13:36 | PN ---
PROGRESS NOTE DATE OF SERVICE: March 25, 2019 The patient is a 68-year-old pleasant white male, admitted to the hospital with acute pancreatitis, this being the first episode. He is doing much better. Abdominal pain has resolved. No nausea, vomiting. On a low-fat diet, tolerating well. PHYSICAL EXAMINATION: Appears comfortable, no apparent distress. VITAL SIGNS: Stable. Blood pressure 131/78, pulse rate 82, temperature 97.9. HEENT: Unremarkable. Conjunctivae pink. Sclerae anicteric. Oral cavity no lesions. NECK: No JVD or lymph node enlargement. CHEST: Clear to auscultation. HEART: Regular rate and rhythm. ABDOMEN: Soft. There was very minimal tenderness on deep palpation in the epigastric area. The rest of the abdomen was benign. Bowel sounds are positive. No organomegaly. EXTREMITIES: No pedal edema. SKIN: No rashes. NEUROLOGICAL: Alert and oriented x3. No focal deficits. LABORATORY DATA: WBC 10, hemoglobin 12, platelets normal. Basic metabolic panel is within normal limits. Alkaline phosphatase is 168. ALT and AST are normal. Lipase is still pending. Lipase yesterday was 2169. IMPRESSION: Acute pancreatitis, gradually improving. Patient on a low-fat diet, tolerating well. Etiology of pancreatitis remains unclear, which needs to be investigated on an outpatient basis. So far, IgG4 levels and fasting triglycerides are normal. No history of alcohol use and ultrasound did not show any gallstones. RECOMMENDATIONS: Continue with low-fat diet. Await labs from this morning. Since patient is doing well, he can be discharged home with an outpatient followup in two weeks, at which time we will schedule him for an endoscopic ultrasound of the pancreas for further evaluation. Thank you for this consultation. MMODL / IJN: [id number] /
== END 2019-03-25 13:52 | disposition home or self-care (01) | DRG 438 ==
LOC: EC 19:20 → 6NMEDSUR 21:14
PROVIDERS: ADMIT Family Medicine; ATTEND Family Medicine
DX: K85.00 Idiopathic acute pancreatitis without necrosis or infection (principal); E43 Unspecified severe protein-calorie malnutrition; E87.1 Hypo-osmolality and hyponatremia; E87.6 Hypokalemia; F17.200 Nicotine dependence, unspecified, uncomplicated; K21.9 Gastro-esophageal reflux disease without esophagitis; K59.00 Constipation, unspecified; K76.89 Other specified diseases of liver; K86.1 Other chronic pancreatitis; E80.6 Other disorders of bilirubin metabolism
CPT/HCPCS: 71046; 80053; 80061; 81001; 82787; 83690; 85025; 85027; 87040; 96361; 96365; 96366; 96372; 96375; 96376; 99285